=== PATIENT | male | born 1955 | race Caucasian/White ===

== ENCOUNTER 2020-05-28 18:57 | Observation (INO) ==
[2020-05-28] MEDS ORDERED: Ondansetron 4 MG/2 ML VIAL IVP PRN (20:21)
[2020-05-28] MEDS ORDERED: *HR* HYDROcodone/Acet 5/325 mg TABLET PO PRN (20:21)
[2020-05-28] MEDS ORDERED: Naloxone 0.4 MG/ML INJ IVP PRN (20:21)
[2020-05-28] MEDS ORDERED: Acetaminophen 325 MG TABLET PO PRN (20:21)
[2020-05-28] MEDS ORDERED: *HR* Labetalol 20 MG/4 ML SYRINGE IVP ONE (21:16)
[2020-05-28] MEDS ORDERED: Furosemide 20 MG/2 ML VIAL IVP ONE (22:57)
[2020-05-29] MEDS ORDERED: Perflutren Lipid Microsphere 1.3 ML in 0.9 % Sodium Chloride 8.7 ML IVP PRN (01:13)
[2020-05-29] MEDS ORDERED: *HR* Promethazine 25 MG/ML VIAL IM PRN (01:15)
[2020-05-29] MEDS ORDERED: *HR* LORazepam 2 MG/ML VIAL IVP PRN ×3 (01:15)
[2020-05-29 03:05] LABS: Basophils % 0.5 %; Eosinophils # 0.1 K/mcL (0.0-0.6); Eosinophils % 1.2 %; Hematocrit 43.7 % (37.5-50.1); Hemoglobin 14.8 g/dL (12.9-16.9); Immature Granulocytes % 0.5 % (0-4); Lymphocytes # 1.6 K/mcL (0.6-4.6); Lymphocytes % 19.4 %; Mean Corpuscular HGB Conc 33.9 g/dL (31.6-35.5); Mean Corpuscular Hemoglobin 31.5 pg (28.0-33.3); Mean Platelet Volume 11.2 fL (9.4-12.4); Monocytes # 0.8 K/mcL (0.0-1.3); Monocytes % 9.9 %; Neutrophils # 5.6 K/mcL (1.6-8.9); Platelet Count 177 K/mcL (140-400); Red Cell Distribution Width 12.5 % (11.5-14.5); Segmented Neutrophils % 68.5 %; White Blood Count 8.1 K/mcL (4.3-11.1)
[2020-05-29 03:08] LABS: Prothrombin Time 12.1 Seconds (9.4-12.1)
[2020-05-29 03:26] LABS: Alanine Aminotransferase 18 Units/L (7-52); Albumin 4.1 g/dL (3.5-5.7); Albumin/Globulin Ratio 1.6 (1.1-2.2); Alkaline Phosphatase 54 Units/L (34-104); Aspartate Amino Transferase 18 Units/L (13-39); BUN/Creatinine Ratio 17 (6-26); Bilirubin,Total 0.3 mg/dL (0.3-1.0); Blood Urea Nitrogen 17 mg/dL (8-23); Calcium 9.5 mg/dL (8.6-10.3); Carbon Dioxide 32 mEq/L (23-29); Chloride 100 mEq/L (98-107); Chol/HDL Ratio 3.6 (0-4.9); Cholesterol 182 mg/dL (< 200); Globulin 2.6 g/dL (2.4-3.5); Glucose 88 mg/dL (70-105); HDL Cholesterol 51 mg/dL (40-59); LDL Cholesterol,Calculated 74 mg/dL (< 100); Magnesium 1.8 mg/dL (1.6-2.6); Osmolality,Calculated 291 (280-300); Potassium 3.3 mEq/L (3.5-5.1); Sodium 140 mEq/L (136-145); Total Protein 6.7 g/dL (6.4-8.9); Triglycerides 285 mg/dL (< 150); eGFR For African Americans > 60 (> 60); eGFR For Non-African Americans > 60 (> 60)
[2020-05-29] MEDS: *HR* Labetalol 20 MG/4 ML SYRINGE IVP PRN ×2 (03:36→14:34)
[2020-05-29] MEDS: niCARdipine 20 MG/200 ML MLS IVC SCH ×3 (04:27→14:29)
[2020-05-29] MEDS: Lisinopril-HCTZ 20-12.5mg TABLET PO SCH (08:51)
[2020-05-29] MEDS: carvediloL 25 MG TABLET PO SCH ×2 (08:51→16:54)
[2020-05-29] MEDS ORDERED: amLODIPine 5 MG TABLET PO SCH (09:00)
[2020-05-29] MEDS ORDERED: Metoprolol XL (24 HR) Succ 50 MG TAB.ER.24H PO SCH (09:00)
[2020-05-29] MEDS ORDERED: Thiamine (B-1) 100 MG, Folic Acid 1 MG, MVI, adult with vitamin K 10 ML in 0.9 % Sodi... IVPB SCH (09:00)
[2020-05-29] MEDS ORDERED: BUPRENORPHINE HCL PO SCH (10:45)
[2020-05-29] MEDS: FLUoxetine 20 MG CAPSULE PO SCH (13:58)
[2020-05-29] MEDS: BuPROPion XL (24 HR) 150 MG TABLET PO SCH (13:59)
[2020-05-29] MEDS: carBAMazepine 200 MG TABLET PO SCH ×2 (13:59→19:59)
[2020-05-29] MEDS ORDERED: NIFEdipine XL (24 HR) 60 MG TAB.ER.24 PO SCH (15:30)
[2020-05-29] MEDS: Furosemide 20 MG/2 ML VIAL IVP SCH (16:24)
[2020-05-29] MEDS ORDERED: traZODone 50 MG TABLET PO SCH (21:00)
[2020-05-30 02:36] LABS: BUN/Creatinine Ratio 18 (6-26); Blood Urea Nitrogen 20 mg/dL (8-23); Calcium 8.9 mg/dL (8.6-10.3); Carbon Dioxide 31 mEq/L (23-29); Chloride 102 mEq/L (98-107); Glucose 107 mg/dL (70-105); Magnesium 1.9 mg/dL (1.6-2.6); Osmolality,Calculated 291 (280-300); Potassium 3.4 mEq/L (3.5-5.1); Sodium 139 mEq/L (136-145); eGFR For African Americans > 60 (> 60); eGFR For Non-African Americans > 60 (> 60)
[2020-05-30] MEDS ORDERED: *HR* Enoxaparin 40 MG/0.4 ML SYRINGE SQ SCH (06:00)
[2020-05-30] MEDS: *HR* Labetalol 20 MG/4 ML SYRINGE IVP PRN (06:00)
[2020-05-30 06:39] LABS: Hematocrit 44.4 % (37.5-50.1); Hemoglobin 14.8 g/dL (12.9-16.9); Mean Corpuscular HGB Conc 33.3 g/dL (31.6-35.5); Mean Corpuscular Volume 96.1 fL (83.0-100.0); Mean Platelet Volume 11.1 fL (9.4-12.4); Platelet Count 143 K/mcL (140-400); Red Blood Count 4.62 M/mcL (4.19-5.50); Red Cell Distribution Width 12.5 % (11.5-14.5); White Blood Count 5.8 K/mcL (4.3-11.1)
[2020-05-30] MEDS: BuPROPion XL (24 HR) 150 MG TABLET PO SCH (08:35)
[2020-05-30] MEDS: Lisinopril-HCTZ 20-12.5mg TABLET PO SCH (08:36)
[2020-05-30] MEDS: FLUoxetine 20 MG CAPSULE PO SCH (08:36)
[2020-05-30] MEDS: carvediloL 25 MG TABLET PO SCH ×2 (08:36→17:33)
[2020-05-30] MEDS: carBAMazepine 200 MG TABLET PO SCH (08:36)
[2020-05-30] MEDS: Furosemide 20 MG/2 ML VIAL IVP SCH (08:37)
[2020-05-30] MEDS ORDERED: amLODIPine 5 MG TABLET PO SCH (09:00)
[2020-05-30] MEDS ORDERED: hydrALAZINE 25 MG TABLET PO SCH ×2 (09:02→16:00)
[2020-05-30] MEDS ORDERED: hydrALAZINE 25 MG TABLET PO ONE (12:58)
[2020-05-30 15:53] VITALS: BP 148/71
[2020-05-31] MEDS ORDERED: Multivit/Ca/Min/Fe/FA 1 TAB TABLET PO ONE (18:00)
[2020-05-31] MEDS ORDERED: Thiamine (B-1) 100 MG in 0.9 % Sodium Chloride 50 ML IVPB ONE (18:00)
[2020-05-31] MEDS ORDERED: Folic Acid 1 MG in 0.9 % Sodium Chloride 50 ML IVPB ONE (18:00)
== END 2020-05-30 17:51 | disposition home or self-care (01) ==
LOC: 3ANU → SUATTDRO 19:59 → 2NNU 05-29 04:15
PROVIDERS: ADMIT Internal Medicine; ATTEND Internal Medicine